=== PATIENT | male | born 1975 | race Caucasian/White ===

== ENCOUNTER 2022-04-01 07:12 | Day surgery (SDC) | payer OTHER ==
[~2022-04-01] VITALS: Ht 172.7 cm; Wt 95.0 kg
[~2022-04-01 07:12] MED LIST: ASPI-1450 PO; ATOR20TA65 PO; CLOP75TA60 PO; DAPA10TA PO; FURO40 PO; GLIP5TAB12 PO; METO100T14 PO; SACU1TAB PO; SITA1TBM PO; SODIUM CHLORIDE 0.9% 1,000 ML ONE
[2022-04-01] MEDS ORDERED: SPIR-37 PO (08:36)
[2022-04-01] MEDS ORDERED: DIAZEPAM 5 MG TABLET ONE (09:00)
[2022-04-01] MEDS ORDERED: DiphenhydrAMINE HCL 50 MG CAPSULE ONE (09:00)
[2022-04-01] MEDS ORDERED: ASPIRIN 81 MG CHEWABLE TABLET ONE (09:00)
[2022-04-01 09:26] LABS: GLUCOMETER DEV NAME(LOC) SDS.; GLUCOSE,POINT OF CARE 133 MG/DL (70-110)
[2022-04-01] MEDS ORDERED: SODIUM CHLORIDE 0.9% 1,000 ML IV ONE (09:30)
[2022-04-01] MEDS ORDERED: ASPIRIN 81 MG CHEWABLE TABLET PO ONE (11:30)
[2022-04-01] MEDS ORDERED: DIAZEPAM 5 MG TABLET PO ONE (11:30)
[2022-04-01] MEDS ORDERED: DiphenhydrAMINE HCL 50 MG CAPSULE PO ONE (11:30)
[2022-04-01] MEDS ORDERED: HEPARIN SODIUM 1000 UNITS/NS 1,000 ML ONE (14:41)
[2022-04-01] MEDS ORDERED: LIDOCAINE/PF 1% 30 ML VIAL ONE (14:41)
[2022-04-01] MEDS ORDERED: SODIUM BICARBONATE 50 MEQ/50 ML VIAL ONE (14:41)
[2022-04-01] MEDS ORDERED: IOHEXOL 300 MG/ML 100 ML VIAL ONE (14:41)
[2022-04-01 15:00] VITALS: BP 130/77
[2022-04-01] MEDS ORDERED: FentaNYL CITRATE PF 100 MCG/2 ML VIAL ONE (15:06)
[2022-04-01] MEDS ORDERED: MIDAZOLAM HCL 2 MG/2 ML VIAL ONE (15:06)
[2022-04-01] MEDS ORDERED: MIDAZOLAM HCL 2 MG/2 ML VIAL IVP ONE (16:15)
[2022-04-01] MEDS ORDERED: IOHEXOL 300 MG/ML 100 ML VIAL IARTER ONE (16:15)
[2022-04-01] MEDS ORDERED: HEPARIN SODIUM 1000 UNITS/NS 1,000 ML IARTER ONE (16:15)
[2022-04-01] MEDS ORDERED: LIDOCAINE 1% 30 ML/SOD BICARB 8.4% 4 ML SQ ONE (16:15)
[2022-04-01] MEDS ORDERED: FentaNYL CITRATE PF 100 MCG/2 ML VIAL IVP ONE (16:15)
[2022-04-01 16:21] VITALS: BP 133/75
== END 2022-04-01 18:50 | disposition home or self-care (01) ==
LOC: CATHLAB 07:12
PROVIDERS: ATTEND Internal Medicine Interventional Cardiology
DX: R94.39 Abnormal result of other cardiovascular function study (principal); I25.10 Atherosclerotic heart disease of native coronary artery without angina pectoris; I25.2 Old myocardial infarction; E11.9 Type 2 diabetes mellitus without complications; I11.0 Hypertensive heart disease with heart failure; I50.9 Heart failure, unspecified; E78.5 Hyperlipidemia, unspecified; Z79.899 Other long term (current) drug therapy; Y83.8 Other surgical procedures as the cause of abnormal reaction of the patient, or of later complication, without mention of misadventure at the time of the procedure; T82.855A Stenosis of coronary artery stent, initial encounter; Z79.01 Long term (current) use of anticoagulants
CPT/HCPCS: 93458; 82962; 99152; 93005; C1760; J3010; J1644; J3490 ×2; J2250; J7030; Q9967